=== PATIENT | male | born 1960 | race Caucasian/White ===

== ENCOUNTER → 2022-10-17 12:10 | Outpatient (CLI) | payer MEDICARE, MEDICAID, SELFPAY ==
[2022-10-17 13:09] LABS: Basophils % 0.6 % (0.1-2.0); Eosinophils # 0.2 K/mm3 (0.0-0.4); Eosinophils % 3.7 % (0.1-12.0); Hematocrit 44.9 % (42.0-52.0); Hemoglobin 14.9 g/dL (14.1-18.0); Lymphocytes # 2.7 K/mm3 (0.7-4.5); Lymphocytes % 45.2 % (10-50); Mean Corpuscular HGB Conc 33.1 g/dL (31.8-35.4); Mean Corpuscular Hemoglobin 31.4 pg (27.0-31.2); Mean Corpuscular Volume 94.9 fl (80-94); Mean Platelet Volume 7.5 fl (7.4-10.4); Monocytes # 0.4 K/mm3 (0.1-1.0); Monocytes % 5.9 % (1.7-9.3); Neutrophils # 2.6 K/mm3 (1.8-7.8); Neutrophils % 44.5 % (37.0-80.0); Platelet Count 287 K/mm3 (142-424); Red Blood Count 4.73 M/mm3 (4.60-6.20); Red Cell Distribution Width 13.9 % (11.5-17.5); White Blood Count 5.9 K/mm3 (4.8-10.8)
[2022-10-17 13:26] LABS: Alanine Aminotransferase 39 U/L (12-78); Albumin Level 4.1 g/dl (3.5-5.0); Albumin/Globulin Ratio 1.4 (1.1-1.8); Alkaline Phosphatase 75 U/L (38-126); Anion Gap 17.3 mEq/L (5-15); Aspartate Amino Transferase 42 U/L (17-59); Bilirubin,Total 0.5 mg/dl (0.2-1.3); Blood Urea Nitrogen 10 mg/dl (9-20); Calcium 8.6 mg/dl (8.4-10.2); Carbon Dioxide 24 mmol/L (22.0-30.0); Chloride 103 mmol/L (98-107); Chol/HDL Ratio 3.6 (1-3.5); Cholesterol 259 mg/dl (140-200); Estimated Glomerular Filt Rate 115 ml/min (>60); GFR (African American) 140 ML/MIN (>60); Globulin 2.9 g/dL (1.3-3.2); Glucose 107 mg/dl (74-100); HDL Cholesterol 72 mg/dl (40-60); Potassium 4.3 mmoL/L (3.5-5.1); Sodium 140 mmol/L (136-145)
[2022-10-17 13:29] LABS: Triglycerides 428 mg/dl (30-150)
[2022-10-17 13:37] LABS: Direct LDL Cholesterol 112.02 mg/dL (100-129)
[2022-10-17 13:41] LABS: 25-OH Vitamin D, Total 15.4 ng/mL (30-100)
[2022-10-17 13:56] LABS: Thyroid Stimulating Hormone 2.48 uIU/mL (0.465-4.68)
[2022-10-17 15:44] LABS: Hemoglobin A1C 5.3 % (4.0-6.0)
== END ==
PROVIDERS: PCP Nurse Practitioner Family; Visit Provider Nurse Practitioner Family
DX: R53.83 Other fatigue (principal); F41.9 Anxiety disorder, unspecified; E55.9 Vitamin D deficiency, unspecified; Z79.899 Other long term (current) drug therapy
CPT/HCPCS: 80053; 80061; 82306; 83036; 84443; 85025

== ENCOUNTER → 2022-10-24 14:09 | Outpatient (CLI) | payer MEDICARE, MEDICAID, SELFPAY | PROVIDERS: PCP Nurse Practitioner Family; Visit Provider Nurse Practitioner Family | DX: F17.200 Nicotine dependence, unspecified, uncomplicated (principal) | CPT/HCPCS: 94060; 94726; 94729 ==

== ENCOUNTER → 2023-02-13 23:33 | Outpatient (CLI) | payer MEDICARE, MEDICAID, SELFPAY ==
[2023-02-13 19:54] LABS: Barbiturates Screen,Urine Negative ng/ml (<200)
[2023-02-13 19:55] LABS: Amphetamine/Metha Screen,Urine Negative ng/ml (<1000)
[2023-02-13 19:57] LABS: Cocaine Screen,Urine Negative ng/ml (<300)
[2023-02-13 19:58] LABS: Benzodiazepines Screen,Urine Positive ng/ml (<200)
[2023-02-13 19:59] LABS: Cannabinoid Screen,Urine Negative ng/ml (<50); Phencyclidine Screen,Urine Negative ng/ml (<25)
[2023-02-13 20:00] LABS: Methadone Screen,Urine Negative ng/ml (<300)
[2023-02-13 20:01] LABS: Opiate Screen,Urine Negative ng/ml (<300)
== END ==
PROVIDERS: PCP Nurse Practitioner Family; Visit Provider Nurse Practitioner Family
DX: Z79.899 Other long term (current) drug therapy (principal)
CPT/HCPCS: 80305

== ENCOUNTER → 2023-05-14 23:07 | Outpatient (CLI) | payer MEDICARE, MEDICAID, SELFPAY ==
[2023-05-14 20:00] LABS: Amphetamine/Metha Screen,Urine Negative ng/ml (<1000)
[2023-05-14 20:01] LABS: Barbiturates Screen,Urine Negative ng/ml (<200)
[2023-05-14 20:02] LABS: Benzodiazepines Screen,Urine Positive ng/ml (<200)
[2023-05-14 20:03] LABS: Cannabinoid Screen,Urine Negative ng/ml (<50); Cocaine Screen,Urine Negative ng/ml (<300)
[2023-05-14 20:04] LABS: Methadone Screen,Urine Negative ng/ml (<300); Opiate Screen,Urine Negative ng/ml (<300)
[2023-05-14 20:05] LABS: Phencyclidine Screen,Urine Negative ng/ml (<25)
== END ==
PROVIDERS: PCP Nurse Practitioner Family; Visit Provider Nurse Practitioner Family
DX: Z79.899 Other long term (current) drug therapy (principal)
CPT/HCPCS: 80305

== ENCOUNTER 2023-07-02 21:08 | Outpatient (CLI) | payer MEDICARE, MEDICAID, SELFPAY ==
[2023-07-02 18:52] LABS: Benzodiazepines Screen,Urine Positive ng/ml (<200)
[2023-07-02 18:53] LABS: Barbiturates Screen,Urine Negative ng/ml (<200)
[2023-07-02 18:55] LABS: Cocaine Screen,Urine Negative ng/ml (<300)
[2023-07-02 18:56] LABS: Opiate Screen,Urine Negative ng/ml (<300); Phencyclidine Screen,Urine Negative ng/ml (<25)
[2023-07-02 19:00] LABS: Methadone Screen,Urine Negative ng/ml (<300)
[2023-07-02 19:02] LABS: Cannabinoid Screen,Urine Positive ng/ml (<50)
[2023-07-02 19:24] LABS: Amphetamine/Metha Screen,Urine Negative ng/ml (<1000)
== END 2023-07-02 23:59 ==
LOC: LAB.DROPOF 21:09
PROVIDERS: PCP Nurse Practitioner Acute Care; Visit Provider Nurse Practitioner Acute Care
DX: Z79.899 Other long term (current) drug therapy (principal)
CPT/HCPCS: 80307

== ENCOUNTER 2023-10-01 13:51 | Outpatient (CLI) | payer MEDICARE, MEDICAID, SELFPAY ==
[2023-10-01 14:19] LABS: Basophils # 0.1 K/mm3 (0-0.2); Basophils % 1.2 % (0.1-2.0); Eosinophils # 0.5 K/mm3 (0.0-0.4); Eosinophils % 7.6 % (0.1-12.0); Hemoglobin 15.5 g/dL (14.1-18.0); Lymphocytes # 2.4 K/mm3 (0.7-4.5); Lymphocytes % 33.3 % (10-50); Mean Platelet Volume 8.1 fl (7.4-10.4); Monocytes # 0.3 K/mm3 (0.1-1.0); Monocytes % 4.6 % (1.7-9.3); Neutrophils # 3.8 K/mm3 (1.8-7.8); Neutrophils % 53.2 % (37.0-80.0); Platelet Count 200 K/mm3 (142-424); Red Blood Count 4.84 M/mm3 (4.60-6.20); White Blood Count 7.2 K/mm3 (4.8-10.8)
[2023-10-01 15:03] LABS: Alanine Aminotransferase 132 U/L (12-78); Albumin Level 4.4 g/dl (3.5-5.0); Albumin/Globulin Ratio 1.4 (1.1-1.8); Alkaline Phosphatase 80 U/L (38-126); Anion Gap 13.3 mEq/L (5-15); Aspartate Amino Transferase 100 U/L (17-59); Bilirubin,Total 0.8 mg/dl (0.2-1.3); Blood Urea Nitrogen 5 mg/dl (9-20); Calcium 9.6 mg/dl (8.4-10.2); Carbon Dioxide 30 mmol/L (22.0-30.0); Chloride 95 mmol/L (98-107); Chol/HDL Ratio 4.7 (1-3.5); Cholesterol 321 mg/dl (140-200); Estimated Glomerular Filt Rate 115 ml/min (>60); GFR (African American) 139 ML/MIN (>60); Globulin 3.2 g/dL (1.3-3.2); Glucose 140 mg/dl (74-100); HDL Cholesterol 69 mg/dl (40-60); Potassium 4.3 mmoL/L (3.5-5.1); Sodium 134 mmol/L (136-145); Total Protein,Serum 7.6 g/dl (6.3-8.2)
[2023-10-01 15:13] LABS: Triglycerides 458 mg/dl (30-150)
[2023-10-01 15:14] LABS: Direct LDL Cholesterol 165.12 mg/dL (100-129); Hemoglobin A1C 6.7 % (4.0-6.0)
[2023-10-01 15:18] LABS: Free T4 (Free Thyroxine) 0.67 ng/dl (0.78-2.19)
[2023-10-01 15:34] LABS: Thyroid Stimulating Hormone 4.36 uIU/mL (0.465-4.68)
[2023-10-01 18:56] LABS: Amphetamine/Metha Screen,Urine Negative ng/ml (<1000)
[2023-10-01 18:57] LABS: Barbiturates Screen,Urine Negative ng/ml (<200); Benzodiazepines Screen,Urine Positive ng/ml (<200)
[2023-10-01 18:58] LABS: Cannabinoid Screen,Urine Negative ng/ml (<50)
[2023-10-01 18:59] LABS: Cocaine Screen,Urine Negative ng/ml (<300); Methadone Screen,Urine Negative ng/ml (<300)
[2023-10-01 19:00] LABS: Opiate Screen,Urine Negative ng/ml (<300); Phencyclidine Screen,Urine Negative ng/ml (<25)
[2023-10-03 15:33] LABS: Lithium (Eskalith(R)) <0.1 mmol/L (0.5-1.2)
== END 2023-10-01 23:59 | disposition home or self-care (01) ==
LOC: LAB 13:52
PROVIDERS: PCP Nurse Practitioner Family; Visit Provider Nurse Practitioner Acute Care
DX: F31.62 Bipolar disorder, current episode mixed, moderate (principal); F41.1 Generalized anxiety disorder; Z79.899 Other long term (current) drug therapy
CPT/HCPCS: 36415; 80053; 80061; 80178; 80307; 83036; 84439; 84443; 85025

== ENCOUNTER 2023-10-22 09:45 | Outpatient (CLI) | payer MEDICARE, MEDICAID, SELFPAY ==
[2023-10-22 19:31] LABS: Free T4 (Free Thyroxine) 0.92 ng/dl (0.78-2.19)
[2023-10-22 19:39] LABS: Alanine Aminotransferase 69 U/L (12-78); Albumin Level 4.3 g/dl (3.5-5.0); Albumin/Globulin Ratio 1.4 (1.1-1.8); Alkaline Phosphatase 73 U/L (38-126); Anion Gap 15.1 mEq/L (5-15); Aspartate Amino Transferase 62 U/L (17-59); Bilirubin,Total 0.8 mg/dl (0.2-1.3); Blood Urea Nitrogen 7 mg/dl (9-20); Calcium 9.5 mg/dl (8.4-10.2); Carbon Dioxide 23 mmol/L (22.0-30.0); Chloride 100 mmol/L (98-107); Estimated Glomerular Filt Rate 115 ml/min (>60); GFR (African American) 139 ML/MIN (>60); Glucose 124 mg/dl (74-100); Potassium 4.1 mmoL/L (3.5-5.1); Sodium 134 mmol/L (136-145); Total Protein,Serum 7.3 g/dl (6.3-8.2)
[2023-10-22 20:09] LABS: Thyroid Stimulating Hormone 1.94 uIU/mL (0.465-4.68)
[2023-10-24 12:04] LABS: Lithium (Eskalith(R)) 0.5 mmol/L (0.5-1.2)
== END 2023-10-22 23:59 | disposition home or self-care (01) ==
LOC: LAB.DROPOF 10-24 09:46
PROVIDERS: PCP Nurse Practitioner Acute Care; Visit Provider Nurse Practitioner Acute Care
DX: F31.62 Bipolar disorder, current episode mixed, moderate (principal); F41.1 Generalized anxiety disorder
CPT/HCPCS: 80053; 80178; 84439; 84443

== ENCOUNTER 2023-11-25 14:20 | Outpatient (CLI) | payer MEDICARE, MEDICAID, SELFPAY ==
[2023-11-26 15:03] LABS: Anion Gap 11.6 mEq/L (5-15); Blood Urea Nitrogen 10 mg/dl (9-20); Calcium 9.3 mg/dl (8.4-10.2); Carbon Dioxide 28 mmol/L (22.0-30.0); Chloride 100 mmol/L (98-107); Estimated Glomerular Filt Rate 99 ml/min (>60); GFR (African American) 119 ML/MIN (>60); Glucose 119 mg/dl (74-100); Potassium 4.6 mmoL/L (3.5-5.1); Sodium 135 mmol/L (136-145)
[2023-11-27 13:12] LABS: Lithium (Eskalith(R)) 0.7 mmol/L (0.5-1.2)
== END 2023-11-25 23:59 | disposition home or self-care (01) ==
LOC: LAB.DROPOF 11-26 10:47
PROVIDERS: PCP Nurse Practitioner Family; Visit Provider Nurse Practitioner Family
DX: F41.9 Anxiety disorder, unspecified (principal); E11.9 Type 2 diabetes mellitus without complications; M54.50 Low back pain, unspecified; Z79.899 Other long term (current) drug therapy
CPT/HCPCS: 80048; 80178

== ENCOUNTER 2023-11-26 11:08 | Outpatient (CLI) | payer MEDICARE, MEDICAID, SELFPAY | END 2023-11-26 23:59 | disposition home or self-care (01) | LOC: LAB.DROPOF 12-01 11:09 | PROVIDERS: PCP Nurse Practitioner Family; Visit Provider Nurse Practitioner Family | DX: E11.9 Type 2 diabetes mellitus without complications (principal) | CPT/HCPCS: 80048 ==

== ENCOUNTER 2024-01-14 11:15 | Outpatient (CLI) | payer MEDICARE, MEDICAID, SELFPAY ==
[2024-01-14 19:52] LABS: Anion Gap 9.2 mEq/L (5-15); Blood Urea Nitrogen 8 mg/dl (9-20); Calcium 9.3 mg/dl (8.4-10.2); Carbon Dioxide 24 mmol/L (22.0-30.0); Chloride 108 mmol/L (98-107); Estimated Glomerular Filt Rate 115 ml/min (>60); GFR (African American) 139 ML/MIN (>60); Glucose 104 mg/dl (74-100); Potassium 4.2 mmoL/L (3.5-5.1); Sodium 137 mmol/L (136-145)
[2024-01-16 13:18] LABS: Lithium (Eskalith(R)) 0.7 mmol/L (0.5-1.2)
== END 2024-01-14 23:59 | disposition home or self-care (01) ==
LOC: LAB.DROPOF 01-15 11:15
PROVIDERS: PCP Nurse Practitioner Acute Care; Visit Provider Nurse Practitioner Acute Care
DX: Z79.899 Other long term (current) drug therapy (principal)
CPT/HCPCS: 80048; 80178

== ENCOUNTER 2024-04-14 14:30 | Outpatient (CLI) | payer MEDICARE, MEDICAID, SELFPAY ==
[2024-04-14 20:13] LABS: Alanine Aminotransferase 66 U/L (12-78); Albumin Level 4.2 g/dl (3.5-5.0); Albumin/Globulin Ratio 1.4 (1.1-1.8); Alkaline Phosphatase 65 U/L (38-126); Anion Gap 14.4 mEq/L (5-15); Aspartate Amino Transferase 64 U/L (17-59); Bilirubin,Total 0.6 mg/dl (0.2-1.3); Blood Urea Nitrogen 22 mg/dl (9-20); Calcium 9.7 mg/dl (8.4-10.2); Carbon Dioxide 25 mmol/L (22.0-30.0); Chloride 99 mmol/L (98-107); Estimated Glomerular Filt Rate 98 ml/min (>60); GFR (African American) 119 ML/MIN (>60); Globulin 2.9 g/dL (1.3-3.2); Glucose 131 mg/dl (74-100); Potassium 4.4 mmoL/L (3.5-5.1); Sodium 134 mmol/L (136-145); Total Protein,Serum 7.1 g/dl (6.3-8.2)
[2024-04-14 20:28] LABS: Free T4 (Free Thyroxine) 0.88 ng/dl (0.78-2.19)
[2024-04-14 20:44] LABS: Thyroid Stimulating Hormone 8.06 uIU/mL (0.465-4.68)
[2024-04-16 15:05] LABS: Lithium (Eskalith(R)) 1.1 mmol/L (0.5-1.2)
== END 2024-04-14 23:59 | disposition home or self-care (01) ==
LOC: LAB.DROPOF 04-16 09:04
PROVIDERS: PCP Nurse Practitioner Acute Care; Visit Provider Nurse Practitioner Acute Care
DX: F41.9 Anxiety disorder, unspecified (principal); F31.62 Bipolar disorder, current episode mixed, moderate
CPT/HCPCS: 80053; 80178; 84439; 84443

== ENCOUNTER 2024-07-19 13:15 | Outpatient (CLI) | payer MEDICARE, MEDICAID, SELFPAY ==
[2024-07-19 17:28] LABS: Basophils # 0.1 K/mm3 (0-0.2); Basophils % 0.7 % (0.1-2.0); Eosinophils # 0.3 K/mm3 (0.0-0.4); Eosinophils % 4.3 % (0.1-12.0); Hematocrit 44.7 % (42.0-52.0); Lymphocytes # 1.4 K/mm3 (0.7-4.5); Lymphocytes % 19.6 % (10-50); Mean Corpuscular HGB Conc 33.6 g/dL (31.8-35.4); Mean Corpuscular Hemoglobin 30.7 pg (27.0-31.2); Mean Corpuscular Volume 91.4 fl (80-94); Mean Platelet Volume 9.9 fl (7.4-10.4); Monocytes # 0.4 K/mm3 (0.1-1.0); Monocytes % 5.6 % (1.7-9.3); Neutrophils # 4.8 K/mm3 (1.8-7.8); Neutrophils % 69.5 % (37.0-80.0); Platelet Count 252 K/mm3 (142-424); Red Blood Count 4.89 M/mm3 (4.60-6.20); Red Cell Distribution Width 12.9 % (11.5-17.5); White Blood Count 6.9 K/mm3 (4.8-10.8)
[2024-07-19 18:35] LABS: Chol/HDL Ratio 3.1 (1-3.5); Cholesterol 220 mg/dl (140-200); HDL Cholesterol 71 mg/dl (40-60); Triglycerides 157 mg/dl (30-150); VLDL Cholesterol 31 mg/dL (0-40)
[2024-07-19 18:48] LABS: Direct LDL Cholesterol 117.62 mg/dL (100-129)
[2024-07-21 08:15] LABS: Lithium (Eskalith(R)) 0.7 mmol/L (0.5-1.2)
== END 2024-07-19 23:59 | disposition home or self-care (01) ==
LOC: LAB.DROPOF 07-21 12:43
PROVIDERS: Nurse Practitioner Family; PCP Nurse Practitioner Acute Care; Visit Provider Nurse Practitioner Acute Care
DX: E78.5 Hyperlipidemia, unspecified (principal); E11.9 Type 2 diabetes mellitus without complications; F31.62 Bipolar disorder, current episode mixed, moderate; F41.9 Anxiety disorder, unspecified; M54.50 Low back pain, unspecified; F17.200 Nicotine dependence, unspecified, uncomplicated
CPT/HCPCS: 80061; 80178; 83036; 85025

== ENCOUNTER 2024-09-09 09:00 | Outpatient (CLI) | payer MEDICARE, MEDICAID, SELFPAY ==
--- NOTE | 2024-09-09 09:15 | XR_ITS ---
FINAL REPORT CLINICAL HISTORY: .pain FINDINGS: AP, oblique, and lateral views of the left wrist were obtained. There is no prior exam for comparison. There is no acute fracture or dislocation. Mild degenerative joint disease. The soft tissues are normal. IMPRESSION: Mild degenerative change without acute osseous abnormality of the left wrist. If pain persists, MR is recommended. Reviewed, Interpreted and Dictated by Angelina Carlisle MD Transcribed by Ashly Funez Authenticated and [facility]
--- NOTE | 2024-09-09 09:15 | XR_ITS ---
FINAL REPORT CLINICAL HISTORY: .pain FINDINGS: AP, oblique, and lateral views of the right wrist were obtained. There is no prior exam for comparison. There is no acute fracture or dislocation. The joint spaces are preserved. The soft tissues are normal. IMPRESSION: No acute osseous abnormality of the right wrist. If pain persists, MR is recommended. Reviewed, Interpreted and Dictated by Angelina Carlisle MD Transcribed by Ashly Funez Authenticated and [facility]
== END 2024-09-09 23:59 | disposition home or self-care (01) ==
LOC: RAD 09:02
PROVIDERS: PCP Nurse Practitioner Family; Visit Provider Physician Assistant
DX: M25.531 Pain in right wrist (principal); M25.532 Pain in left wrist
CPT/HCPCS: 73110

== ENCOUNTER 2024-09-23 14:24 | Outpatient (CLI) | payer MEDICARE, MEDICAID, SELFPAY ==
--- OUTSIDE RECORDS SUMMARY | 2024-09-23 14:25 | XMS_ITS | Data Portability ---
Author Organization [facility] ADMIN Address [address] [place] [id number] Assessment No assessment recorded. Plan of Treatment Reminders Order Date Submit Date Provider Last Modified By Organization Details Last Modified Time Details Appointments None recorded. Lab None recorded. Referral psychiatris t referral 2021 022 [address] 3 Popeye Ayala MD, [address] [facility], [place], [address], 16:39:16 Procedures None recorded. Surgeries None recorded. Imaging None recorded. Medication Orders nicotine 14 mg/24 hr daily transdermal patch 2021 022 [facility], [facility] [place], [place], [id number], 12:21:27 Patient TargetsNo targets recorded. Patient Instructions Encounter Date Encounter Id Patient Instructions Last Modified By Organization Details Last Modified Time 02/06/2022 [id number] smoking cessation counseling, greater than 3 minutes up to 10 minutes* [email or web address] Not available 02/23/2022 14:01:09 Reason for Referral Psychiatrist Referral for Bi polar disorder Referring Physician: Bayron Bird, Internal Medicine, Encounter Date: 02/06/2022 Medical Equipment None Reported. Allergies Allergen ID Allergen Name Allergen Category Reaction Reaction Severity Criticality Documentation Date Start Date Code Code System Note Provider Name and Address Organization Details Recorded Time 79686 azithromy dick medicatio n Not available Not available Not available 02/06/2022 57787 RxNorm Brody [facility] & [place] 11:55:30 Medications Name Sig Start Date Stop Date Status Note LastModified by Organization Details LastModified Time fluoxetine 40 mg capsule Take 2 capsules every morning active Not Available Not Available No t Available atorvastati n 40 mg tablet TAKE 1 Tablet BY MOUTH AT BEDTIME active Not Available Not Available No t Available lamotrigine 150 mg tablet Take 1 oral tablet 2 times a day 02/06 completed Not Available Not Available Not Available nicotine 14 mg/24 hr daily transdermal patch Apply 1 patch every day by transderm al route. 2021 active Not Available Not Available Not Avai lable trazodone 50 mg tablet Take 1/2-1 tablet at bedtime as needed for sleep. active Not Available Not Available No t Available aspirin 81 mg tablet,haritha yed release TAKE 1 Tablet BY MOUTH ONCE DAILY active Not Available Not Available No t Available lithium carbonate ER 450 mg tablet,exte nded release Take 2 tablets at bedtime active Not Available Not Available No t Available ziprasidone 40 mg capsule Take 2 capsules every evening with food active Not Available Not Available No t Available diazepam 10 mg tablet Take 1 tablet twice a day by oral route. active Not Available Not Available No t Available albuterol sulfate HFA 90 mcg/actuati on aerosol inhaler INHALE TWO PUFFS FOUR TIMES DAILY NEEDED active Not Available Not Available No t Available diazepam 5 mg tablet Take 1 tablet daily as needed for severe anxiety x 2 weeks, then decrease to 1/2-1 tablet daily as needed x 2 weeks then discontin ue. 02/06 completed Not Available Not Available Not Available Vitals Date Recorded Body weight Body mass index (BMI) Body height Body temperature Oxygen saturation Oxygen saturation in Arterial blood by Pulse oximetry Heart rate Systolic blood pressure Diastolic blood pressure Provider Name and Address Organization Details Last Updated DateTime 2 020188. 68 g 34 kg/m2 175.26 cm 98.2 [degF] 98 % 98 % 80 /min 118 mm[Hg] 78 mm[Hg] Brody GARCIA [facility] & [place] 11:59:22 Social History Question Answer Notes LastModified by Organizat ion Details LastModified Time Tobacco Smoking Status Current Every Day [facility] & [place] 02/06/2022 11:56:19 What Is Your Level Of Alcohol Consumption? Occasional Information not available 02/06/2022 How Much Tobacco Do You Smoke? 0.5 PPD Information not available 02/06/2022 Do You Use Any Illicit Or Recreational Drugs? No Information not available 02/06/2022 Sex: Unknown Functional Status None recorded. Mental Status None recorded. Family History Nothing Reported. Medical History Condition Response Anxiety Disorder Y Depression Y Asthma Y Past Encounters Encounter ID Performer Location Encounter Start Date Encounter Closed Date Diagnosis/Indication Diagnosis SNOMED-CT Code Diagnosis ICD10 Code Diagnosis Note [id number] Bayron Bird MD [facility] [address] [facility] [address] [place] [address] 02/06/2022 11:25:28 02/06/2022 12:19:38 Benzodiazepine dependence 827250819 F13.20 Anxiety 09446216 F41.9 Bipolar disorder 9142164 4 F31.9 Smoker 44531831 F17.203 Hyperlipidemia 65770240 E78.5 nuc med stress test bourbon -Continue atorvastat in Diet education 46164565 Z71.3 spent approximat love 15 minutes dietary Education with patient. He is to stop high fructose corn syrup containing carbonated beverages altogether . Focus on high-prote in low-carboh ydrate diet intermitte nt fasting skip breakfast Exercises education, guidance, and counseling 580379190 Z71.82 discussed with patient approximat love 10 VATS. Found 10 minutes discussing exercise. Recommend joining a gem were getting a piece of exercise equipment in the house. 2024 minutes 3-4 days per week of interval training gentle heart rate to 70% cardiovasc ular max approximat love 110 beats per minute interval fashion Health Concerns Section Related Observation LastModified by Organization Detai ls LastModified Time None Recorded Concern Status LastModified by Organization Details LastModified Time None Recorded Advance Directives Directive None Recorded Payers Insurance Date Sequence Insurance Name Policy Number Policy [place] Covered Member ID [place] Member ID Guarantor Name 12/06/2023 1 [id number] Donny S Figueroa [id number] Donny S Figueroa 12/06/2023 2 [id number] Donny Figueroa [id number] Donny Figueroa 02/05/2023 2 MEDICAID-[facility] CHO[facility] - FFS/TRADITIO NAL Donny Figueroa [id number] Donny Figueroa Notes Date Note Type Note Provider Name and Address Organization Details Recorded Time 02/06/2022 text/html 61-year-old chet salomon here to establish care. Met this gentleman in the emergency department at [facility]. At that time he was being seen for panic attack due to benzodiazepine withdrawal. He precipitously been withdrawn off of Valium which he had been on since 1994 and was having an acute panic reaction to withdrawal. Patient states he started back on Valium 10 mg 1 p.o. b.i.d. and is affectively cured his withdrawal. He has no more panic. He also is taking lithium carbonate, fluoxetine, Geodon and trazodone at night to sleep. This is a good cocktail for MN and works quite well. Otherwise he has a history of dyslipidemia. No problems with hypertension. Blood pressures been well controlled on no medication. He had a negative stress test in the emergency department at [facility] this year. His nuclear medicine stress test which was normal. No other cerebrovascular disease. He does smoke approximately half pack a day. He has been trying to quit. He also has dietary did issues. He drinks 12 cokes a day and is a stress eater. Bayron Bird MD [address], [place], [address], [facility] [place] & [place] 02/06/2022 12:37:34
--- NOTE | 2024-09-23 14:45 | MR_ITS ---
FINAL REPORT TECHNIQUE: Multiplanar and multisequence imaging of the cervical spine was obtained. CLINICAL HISTORY: neck pain, numbness in 4th and 5th digits of right hand after lifting a heavy object 1 yr ago FINDINGS: There is very mild anterolisthesis of C3 on C4 which is likely degenerative. Alignment is otherwise normal. Vertebral body height is preserved. Signal intensity within the substance of the spinal cord is normal. There is a hemangioma in the C4 vertebral body. No acute paraspinal abnormality. C2/3: Prominent right facet osteoarthropathy. No canal stenosis. Mild to moderate right foraminal narrowing. C3/4: Annular disc bulge with degenerative endplate change and facet osteoarthropathy. No canal stenosis. Mild right and severe left foraminal narrowing. C4/5: Annular disc bulge with degenerative endplate change and facet osteoarthropathy. Mild canal stenosis. Moderate bilateral foraminal narrowing. C5/6: Annular disc bulge with degenerative endplate change and facet osteoarthropathy, asymmetric to the right. Mild canal stenosis. Severe bilateral foraminal narrowing. C6/7: Annular disc bulge with degenerative endplate change and facet osteoarthropathy. No canal stenosis. Moderate to severe right, greater than left, foraminal narrowing. C7/T1: There is no focal disc herniation, central stenosis or neural foraminal narrowing. IMPRESSION: Multilevel degenerative disease as detailed. Reviewed, Interpreted and Dictated by Angelina Carlisle MD Transcribed by BARB Monk Authenticated and [facility]
== END 2024-09-23 23:59 | disposition home or self-care (01) ==
LOC: RAD 14:24
PROVIDERS: PCP Nurse Practitioner Family; Visit Provider Physician Assistant
DX: G56.21 Lesion of ulnar nerve, right upper limb (principal)
CPT/HCPCS: 72141

== ENCOUNTER 2024-10-04 12:34 | Day surgery (SDC) | payer MEDICARE, MEDICAID, SELFPAY ==
[2024-10-04 13:34] VITALS: BP 154/80; PULSE 76; RESP 16; TEMP 36.7; O2SAT 97; BMI 36.6
[2024-10-04] MEDS: LACTATED RINGERS 1000ML 1,000 ML 50 ML IV (13:43)
--- NOTE | 2024-10-04 13:49 | P.PNANES_ITS ---
[facility] Disclaimer: The information contained in this section may have been updated after the patient was seen, as this information can be updated by other users. Medical History Anxiety Tobacco dependence syndrome Bipolar 1 disorder, mixed, moderate Generalized anxiety disorder Diabetes mellitus Surgical History No pertinent past surgical history Family History Family/Other No significant family history Social History Smoking Status: Current some day smoker tobacco type: cigarettes and e- cigarettes alcohol intake: current alcohol intake frequency: holidays/special occasions only substance use type: denies use current occupational status: retired and disabled Travel in the last 8 weeks?: None housing: apartment lives independently: Yes marital status: single Have you lived/traveled outside US in past 30 days?: No Contact w/someone who lives/traveled outside US past 30 days?: No Exposure to someone with infectious disease in past 14 days?: No Do you have a fever (greater than 100.4 F or 38 C)?: No Have you tested positive for COVID-19?: No Exposed to someone with COVID-19 in past 14 days?: No Do you have a sore throat?: No Do you have a cough?: No Do you have any weakness?: No Do you have any diarrhea?: No Are you experiencing any unusual bleeding?: No Do you have any muscle aches/pain?: No Do you have any abdominal pain?: No Are you experiencing loss of taste or smell?: No [facility] Anesthesia Checklist Patient Identification Patient Identification: Arm Band and Verbal (Name & ) Structural Data Admitted From: Home Planned Operative Procedure/s: colonoscopy Consent for Planned Operative Procedure(s) Verified: Yes Verified Documents: Surgical Consent NPO Status Verified Time NPO: 00:00 Chart Verification Results Verified: None Additional verifications Fingerstick Blood Glucose: 142 Patient : No Anesthesia Reactions: No Airway Assessment Mallampati Score:: Class II C-Spine Mobility Assessed: Yes TMJ Mobility Assessed: Yes Dentition: Edentulous Neurological Assessment Level of Consciousness: Awake, Alert and Appropriate Hx Seizures: No Numbness or tingling in extremities: Yes (Numbness down right arm) Anesthesia Plan Anesthesia Plan: Verified ASA Class: II Anesthesia Type: MAC
--- NOTE | 2024-10-04 14:48 | P.HP_ITS ---
History of Present Illness *Admission Date: 10/04/24 *Reason for visit:: Screening for colon cancer *History of present illness: Mr. Figueroa is a 63-year-old gentleman who is here for screening colonoscopy and last colonoscopy was more than 10 years ago. The examination is deemed medicall y necessary for screening colonoscopy. The patient has been seen, interviewed and examined prior to the procedure by both myself and the anesthesia provider. [facility] Disclaimer: The information contained in this section may have been updated after the patient was seen, as this information can be updated by other users. Medical History Anxiety Tobacco dependence syndrome Bipolar 1 disorder, mixed, moderate Generalized anxiety disorder Diabetes mellitus Surgical History No pertinent past surgical history Family History Family/Other No significant family history Social History Smoking Status: Current some day smoker tobacco type: cigarettes and e-cigarett es alcohol intake: current alcohol intake frequency: holidays/special occasions only substance use type: denies use current occupational status: retired and disabled Travel in the last 8 weeks?: None housing: apartment lives independently: Yes marital status: single Have you lived/traveled outside US in past 30 days?: No Contact w/someone who lives/traveled outside US past 30 days?: No Exposure to someone with infectious disease in past 14 days?: No Do you have a fever (greater than 100.4 F or 38 C)?: No Have you tested positive for COVID-19?: No Exposed to someone with COVID-19 in past 14 days?: No Do you have a sore throat?: No Do you have a cough?: No Do you have any weakness?: No Do you have any diarrhea?: No Are you experiencing any unusual bleeding?: No Do you have any muscle aches/pain?: No Do you have any abdominal pain?: No Are you experiencing loss of taste or smell?: No Other Medical History Have you received the Pneumonia Vaccine: Yes Review of Systems Review of Systems Review of systems (narrative): Negative *Cardiovascular Comments: Negative *Gastrointestinal Comments: Negative *Genitourinary Comments: Negative *Musculoskeletal Comments: Negative *Neurologic Comments: Negative Meds Home Medications and Allergies Home Medications ?Medication ?Instructions ?Recorded ?Confirmed ?Type fluoxetine 20 mg capsule 20 mg PO DAILY #90 caps 04/14/24 10/04/24 Rx lithium carbonate 450 mg 900 mg (2 x 450 mg) PO DAILY #60 04/14/24 10/04/24 Rx tablet,extended release tabs ziprasidone HCl 80 mg capsule 80 mg PO HS #30 caps 04/14/24 10/04/24 Rx (Geodon) albuterol sulfate 90 mcg/actuation See Rx Instructions .Route 07/14/24 10/04/24 Rx aerosol inhaler (Ventolin HFA) .COMPLEX #18 grams metformin 1,000 mg tablet,extended 1,000 mg PO DAILY #30 tabs 07/27/24 10/04/24 Rx release 24hr (osmotic) diazepam 5 mg tablet (Valium) 5 mg PO BID PRN anxiety #60 tabs 09/14/24 10/04/24 Rx rosuvastatin 20 mg tablet See Rx Instructions .Route 09/14/24 10/04/24 Rx .COMPLEX #90 tabs New Prescriptions to Start Prescriptions: Allergies Allergy/AdvReac Type Severity Reaction Status Date / Time erythromycin base Allergy Unknown Other Verified 10/04/24 13:33 (ERYTHROMYCIN BASE) Exam Data for Last 24 hours Vital signs and Labs for Last 24 Hours: Temp Pulse Resp BP Pulse Ox O2 Del Method 98.0 F 76 16 154/80 H 97 Room Air 10/04/24 13:34 10/04/24 13:34 10/04/24 13:34 10/04/24 13:34 10/04/24 13:34 10/04/24 13:34 I & O for Last 24 hours: Intake & Output 10/01/24 10/02/24 10/03/24 10/04/24 23:59 23:59 23:59 23:59 Weight 248 lb *Routine HEENT Exam Head: Present normocephalic Eye: Present EOMI and PERRL ENT: Present mucous membranes moist *Routine Neck Exam Neck: Present supple *Routine Respiratory Exam Respiratory: Present CTA bilaterally *Routine Cardiovascular Exam Cardiovascular: Present RRR *Routine Abdominal Exam Abdominal: Present soft and normoactive bowel sounds; Absent tenderness *Routine Rectal Exam Rectal:: deferred *Routine Genitalia Exam Genitalia:: deferred *Routine Extremities Exam Extremities: Absent cyanosis, clubbing or edema *Routine Skin Exam Skin: Present warm; Absent rash *Routine Neurological Exam Neurological: Present alert and oriented X3 Assessment and Plan *Assessment and plan (1) Screening for colon cancer: Status: Acute Category: Medical Code(s): Z12.11 - Encounter for screening for malignant neoplasm of colon Plan A/P: 1. Screening for colon cancer is the preprocedural diagnosis. The patient will be anesthetized/sedated using MAC sedation. The patient has been seen and examined. Cardiac and lung assessment prior to the examination is stable. Proceed with planned screening colonoscopy.
[2024-10-04 14:52] VITALS: O2SAT 97
--- NOTE | 2024-10-04 15:06 | HMH.PROCNOTE ---
[facility] Procedure Note Date: 10/04/24 Time: 15:28 Procedure Note:: Colonoscopy Procedure Report: Colonoscopy with cold snare polypectomy Endoscopist: Erlin Guevara II, MD Referring physician: CHRIS Santiago Date of Procedure: October 04, 2024 Equipment: Olympus 190 variable stiffness pediatric colonoscope Sedation: MAC sedation Indication: Mr. Figueroa is a 63-year-old gentleman who is here for screening colonoscopy. His last colonoscopy was more than 10 years ago. He reports no abdominal pain, weight loss, change in his bowel habits or family history of colon cancer. He does have bright red rectal bleeding from internal hemorrhoids that occurs once weekly. This can sometimes fill the commode. He also has some hemorrhoidal prolapse. Procedure: Prior to the procedure, a history and physical exam was performed, and patient's medications and allergies were reviewed. The risks, benefits and alternatives of the sedation and procedure were discussed with the patient. All questions were answered and informed consent was obtained. The patient was brought to the procedure room. Patient identification and proposed procedure were verified by the physician and the nurse. The patient was placed in a left lateral decubitus position and the scope was passed under direct vision. Throughout the procedure, the patient's blood pressure, pulse, and oxygen saturations were monitored continuously. The colonoscopy was accomplished without difficulty. The patient tolerated the procedure well. Findings: On digital rectal examination there was normal rectal tone. There were no external hemorrhoids. The colonoscope was introduced through the anal canal to the rectum and advanced to the cecum. The ileocecal valve and appendiceal orifice were identified. The scope was advanced a short distance into the ileum which appeared grossly normal. The scope was then withdrawn into the colon. The preparation was fair to poor with a lot of liquid yellowish-brown stool and multiple washings were obtained. Diminutive polyps would be difficult to visualize. There were 3 polyps identified (transverse x 1 (8 mm), descending x 1 (5 mm) and sigmoid x 1 (6 mm)). These were all removed via cold snare polypectomy. Upon retroflexion within the rectum there were grade 2-3 internal hemorrhoids. The preparation was fair to poor throughout with Graham Preparation Score of 5-6 out of 9. The cecal time was 12 minutes. Impression: 1. Colonic polyps x 3 2. Fair to poor bowel preparation 3. Grade 2-3 internal hemorrhoids Plan: I will follow-up the polyp histology and recommend repeat surveillance colonoscopy again in 5 years if the polyps are adenomatous.
[2024-10-04 15:37] VITALS: BP 119/77; PULSE 69; RESP 18; TEMP 36.1; O2SAT 98
[2024-10-04 15:47] VITALS: BP 143/88; PULSE 73; RESP 18; O2SAT 97
[2024-10-04 15:57] VITALS: BP 147/90; PULSE 71; RESP 18; O2SAT 98
[2024-10-04 16:07] VITALS: BP 138/80; PULSE 68; RESP 20; TEMP 36.1; O2SAT 99
[2024-10-06 07:35] LABS: POC Glucose,Bedside 142 (70-110)
== END 2024-10-04 16:10 | disposition home or self-care (01) ==
PROVIDERS: PCP Nurse Practitioner Family; Visit Provider Internal Medicine Gastroenterology
PROC: 0DJD8ZZ Inspection of Lower Intestinal Tract, Via Natural or Artificial Opening Endoscopic (ICD-10-PCS; CPT 45378; principal; 2024-10-04 14:30)
DX: Z12.11 Encounter for screening for malignant neoplasm of colon (principal); K62.5 Hemorrhage of anus and rectum; D12.4 Benign neoplasm of descending colon; D12.5 Benign neoplasm of sigmoid colon; D12.3 Benign neoplasm of transverse colon; K64.9 Unspecified hemorrhoids; E11.9 Type 2 diabetes mellitus without complications
CPT/HCPCS: 45385; 82962; J7120

== ENCOUNTER 2025-01-26 16:21 | Outpatient (CLI) | payer MEDICARE, MEDICAID, SELFPAY ==
[2025-01-26 20:32] LABS: Hematocrit 41.3 % (42.0-52.0); Hemoglobin 13.5 g/dL (14.1-18.0); Immature Granulocytes % 0.5 %; Mean Corpuscular HGB Conc 32.7 g/dL (31.8-35.4); Mean Corpuscular Hemoglobin 32.7 pg (27.0-31.2); Mean Corpuscular Volume 100.0 fl (80-94); Nucleated Red Blood Cells % 0 %; Platelet Count 189 K/mm3 (142-424); Red Blood Count 4.13 M/mm3 (4.60-6.20); Red Cell Distribution Width-SD 49.1 fL; White Blood Count 5.8 K/mm3 (4.8-10.8)
[2025-01-26 20:58] LABS: Alanine Aminotransferase 43 U/L (12-78); Albumin Level 4.3 g/dl (3.5-5.0); Albumin/Globulin Ratio 1.5 (1.1-1.8); Alkaline Phosphatase 78 U/L (38-126); Anion Gap 13.0 mEq/L (5-15); Aspartate Amino Transferase 49 U/L (17-59); Bilirubin,Total 0.5 mg/dl (0.2-1.3); Blood Urea Nitrogen 15 mg/dl (9-20); Calcium 8.7 mg/dl (8.4-10.2); Carbon Dioxide 25 mmol/L (22.0-30.0); Chloride 102 mmol/L (98-107); Creatinine,Serum 0.90 mg/dl (0.66-1.25); Estimated Glomerular Filt Rate 86 ml/min (>60); GFR (African American) 103 ML/MIN (>60); Globulin 2.9 g/dL (1.3-3.2); Glucose 155 mg/dl (74-100); Potassium 4.0 mmoL/L (3.5-5.1); Sodium 136 mmol/L (136-145); Total Protein,Serum 7.2 g/dl (6.3-8.2)
[2025-01-26 22:24] LABS: Thyroid Stimulating Hormone 5.63 uIU/mL (0.465-4.68)
--- OUTSIDE RECORDS SUMMARY | 2025-01-27 16:24 | XMS_ITS | Clinical Summary ---
Author Organization [facility] Address [address] [place] [address] Care Team Providers Care Director Of Category Management Name Role Phone Unavailable Primary Care Provider Unavailabl e Allergies Active Allergy Reactions Criticality Noted Date Comments Erythromycin Anaphylaxis High 10/02/2022 Haloperidol Unknown - Patient st ates they do not know rxn details Low 11/23/2013 Medications albuterol 108 (90 Base) MCG/ACT inhaler INHALE TWO PUFFS FOUR TIMES DAILY NEEDED 05/28/2022 Active aspirin 81 MG EC tablet Take 81 mg by mouth 1 (one) time each day. 01/01/2022 Active diphenhydrAMINE (Sominex) 25 MG tablet Take 25 mg by mouth at night if needed for sleep. Active FLUoxetine (PROzac) 20 MG capsule Take 1 capsule (20 mg) by mouth 1 (one) time each day. 30 capsule 10/06/2022 Active ziprasidone (Geodon) 40 MG capsule Take 1 capsule (40 mg) by mouth 1 (one) time each day with dinner. Take with a 500 calorie meal 30 capsule 10/05/2022 Active hydrOXYzine pamoate (Vistaril) 25 MG capsule Take 1 capsule (25 mg) by mouth 3 (three) times a day if needed for itching for up to 10 days. Do not take with benadryl or other anti-histamin es 10 capsule 10/05/2022 Active nicotine (Nicoderm CQ) 7 MG/24HR patch Place 1 patch on the skin 1 (one) time each day over 24 hours for 14 doses. 14 patch 11/13/2022 Active Active Problems Problem Noted Date Diagnosed Date Bipolar disorder 10/03/2022 Other specified anxiety disorders 10/03/2022 Major depressive disorder 10/03/2022 Nicotine dependence 10/03/2022 Acute alcohol dependence syndrome 10/02/2022 Social History Tobacco Use Types Packs/Day Years Used Date Smoking Tobacco: Every Day Cigarettes 0.3 52.7 Started: 1970 Smokeless Tobacco: Never Tobacco Cessation:Ready to Q uit: Not Asked; Counseling Given: Not Answered Alcohol Use Standard Drinks/Week Comments Yes 0 (1 standard drink = 0.6 oz pur e alcohol) CAGE ASSESSMENT Answer Date Recorded Cage unable to access Not on file 10/03/2022 Maximum number of drinks you had on a given occasion in the last month? 5 or more drinks 10/03/2022 How many alcoholic Beverages do you typically drink in a week? 15 or more per week 10/03/2022 Have you ever felt you shoul d CUT down on your drinking? 1 10/03/2022 Have you been ANNOYED by peo ple criticizing your drinking? 0 10/03/2022 Have you felt GUILTY about your drinking? 0 10/03/2022 Have you had a drink first t yfn in the morning (EYE-COTTON STRIPPER) to steady your nerves or to get rid of a hangover? 1 10/03/2022 CAGE Questionnaire Score 2 023 Sex and Gender Information Value Date Recorded Sex Assigned at Not on file Legal Sex Male 6:38 PM EDT Gender Identity Not on file Sexual Orientation Not on file Last Filed Vital Signs Vital Sign Reading Time Taken Comments Blood Pressure 127/84 10/05/2022 11:28 AM EDT Pulse 71 10/05/2022 11:28 AM EDT Temperature 36.7 C (98 F) 10/05/2022 11:28 AM EDT Respiratory Rate 20 10/05/2022 3:30 AM EDT Oxygen Saturation 95% 10/05/2022 11:28 AM EDT Inhaled Oxygen Concentration - - Weight 97.1 kg (214 lb 1.1 oz) 10/04/2022 11:16 PM EDT Height 170.2 cm (5' 7 ) 10/03/2022 8:09 AM EDT Body Mass Index 33.53 10/03/2022 8:09 AM EDT Plan of Treatment Health Maintenance Due Date Last Done Comments [facility]-Depression Screening 1962 [facility]-Medicare Annual Wellness (AWV) 1962 [facility]-Infant/Child/Adol SDOH Screenings 1962 [facility]-Obesity Intervention 1968 [facility]- SDOH Screenings 1980 [facility]-Adult SDOH Screenings 1980 [facility]-DTaP,Tdap,and Td Vaccines (1 - Tdap) 1981 CT Colonography 12/15/2007 Colonoscopy 12/15/2007 FIT-DNA 12/15/2007 FIT 12/15/2007 FOBT 12/15/2007 Sigmoidoscopy 12/15/2007 [facility]-Colorectal Cancer Screening 12/15/2007 [facility]-Pneumococcal Vaccine: 50+ Years (2 of 2 - PCV) 2012 04/06/2011 [facility]-Zoster Vaccines (1 of 2) 2012 [id number] Vaccine (4 - season) 2025 05/07/2021, 10/02/2020, 09/04/2020 [facility]-Influenza Vaccine (#1) 01/17/202503/27, 02/23/2020, 03/23/2017, Additional history exists [facility]-RSV Vaccine: 60+ Years or (1 - 1-dose 75+ series) 2037 [facility]-HIV Screening Completed 10/04/2022 [facility]-Hepatitis C Screening Completed 10/04/2022 HPV Vaccines Aged Out No longer eligi ble based on patient's age to complete this topic [facility]-HIB Vaccines Aged Out No longer e ligible based on patient's age to complete this topic [facility]-Hepatitis A Vaccines Aged Out No longer eligible based on patient's age to complete this topic [facility]-IPV Vaccines Aged Out No longer e ligible based on patient's age to complete this topic [facility]-Rotavirus Vaccines Aged Out No lo nger eligible based on patient's age to complete this topic Procedures Procedure Name Priority Date/Time Associated Diagnosis Comments HEPATITIS C ANTIBODY - ED W/REFLEX TO HCV QUANT PCR Routine 10/04/2022 4:09 AM EDT HIV 1/2 ANTIBODY/ANTIGEN SCREEN WITH REFLEX TO HIV I/II DIFFERENTIATION Routine 10/04/2022 4:09 AM EDT from Last 3 Months or Most Recently Relevant to Health Maintenance Results * HIV 1 & 2 Antibody/Antigen Screen (10/04/2022 4:09 AM EDT) [facility] HIV 1 & 2 Antibody/Antigen Screen Non Reactive Non Reactive 10/04/2022 5:12 AM EDT [facility] Comment:Screening for HIV 1 & 2 antibodies, and P24 antigen is NONREACTIVE. No confirmatory testing is required. Blood Venous blood specimen / Unknown Venipuncture / Unknown 10/04/2022 4:09 AM EDT 10/04/2022 4:31 AM EDT [facility] BLOOD ORDERABLES Final Res ult Performing Organization Address [facility] Co de Phone Number HEALTHCARE [facility] [address] [place] [address] * Hepatitis C Antibody - ED (10/04/2022 4:09 AM EDT) [facility] Hepatitis C Antibody Negative Negative 10/04/2022 5:13 AM EDT [facility] Blood Venous blood specimen / Unknown Venipuncture / Unknown 10/04/2022 4:09 AM EDT 10/04/2022 4:31 AM EDT [facility] BLOOD ORDERABLES Final Res ult Performing Organization Address [facility] Co de Phone Number [facility] [address] [place] [address] from Last 3 Months or Most Recently Relevant to Health Maintenance [facility] MED[facility] Advance Directives * Full Code (Latest Code Status on File) Date Activated Date Inactivated Comments 10/02/2022 11:22 PM 10/05/2022 4:01 PM Question Answer Comments Patient has decision-making capacity? Yes
--- OUTSIDE RECORDS SUMMARY | 2025-01-27 16:24 | XMS_ITS | Clinical Summary ---
[facility] Address [address] [place] [address] Care Team Providers Care Scaffold Setter Name Role Phone Provider, No Known Primary Care Provider Unavail able Immunizations Immunization Administration Dates Next Due Flu Vaccine Quad PF >36MO 03/23/2017 Social History Tobacco Use Types Packs/Day Years Used Date Smoking Tobacco: Never Assessed Abuse Screen Answer Date Recorded Unsafe at Home or Work/School Not on file Feels Threatened by Someone? Not on file 03/2023 Does Anyone Keep You from Co ntacting Others or Doint Things Outside the Home? Not on file 02/26/2023 Physical Sign of Abuse Present Not on file 1 Housing Stability Answer Date Recorded Current Living Arrangements Not on file 02/16 Potentially Unsafe Housing Conditions Not on mehrdad e 02/26/2023 Family and Community Support Answer Phuc e Recorded Help with Day-to-Day Activities Not on file 02/26/2023 Lonely or Isolated Not on file 02/26/2023 Employment Answer Date Recorded Do you want help finding or keeping work or a alejandro b? Not on file 02/26/2023 Disabilities Answer Date Recorded Concentrating, Remembering, or Making Decisions Difficulty Not on file 02/26/2023 Doing Errands Independently Difficulty Not on fi le 02/26/2023 Education Answer Date Recorded Help with school or training? Not on file Preferred Language Not on file 02/26/2023 Sex and Gender Information Value Date Recorded Sex Assigned at Not on file Legal Sex Male 12:57 PM EST Gender Identity Not on file Sexual Orientation Not on file Plan of Treatment Health Maintenance Due Date Last Done Comments TDAP/TD VACCINES (1 - Tdap) 1981 COLOGUARD 12/15/2007 COLON CANCER SCREENING 5 YEAR SIGMOIDOSCOPY 12/15/2007 COLONOSCOPY 12/15/2007 COLORECTAL CANCER SCREENING 12/15/2007 CT COLONOGRAPHY 12/15/2007 FECAL OCCULT BLOOD TEST 12/15/2007 FIT Testing (1 year) 12/15/2007 Pneumococcal Vaccine 50+ (1 of 1 - PCV) 2012 ZOSTER VACCINE (1 of 2) 2012 ANNUAL PHYSICAL 03/23/2017 HEPATITIS C SCREENING 03/23/2017 COVID-19 Vaccine ( season) 2025 INFLUENZA VACCINE 02/16/2025 03/23/2017 Insurance MEDICARE A & B Care Teams Scaffold Setter Relationship Specialty Start Date End Date Provider, No Known [facility] [place] [address] PCP - General 03/23/17
== END 2025-01-26 23:59 | disposition home or self-care (01) ==
LOC: LAB.DROPOF 01-27 16:22
PROVIDERS: PCP Nurse Practitioner Family; Visit Provider Nurse Practitioner Family
DX: E11.9 Type 2 diabetes mellitus without complications (principal); R79.89 Other specified abnormal findings of blood chemistry; I10 Essential (primary) hypertension; Z12.5 Encounter for screening for malignant neoplasm of prostate; Z79.899 Other long term (current) drug therapy
CPT/HCPCS: 80053; 84443; 85025; G0103

== ENCOUNTER 2025-05-03 15:42 | Outpatient (CLI) | payer MEDICARE, MEDICAID, SELFPAY ==
[2025-05-03 21:49] LABS: Alanine Aminotransferase 125 U/L (12-78); Albumin Level 4.1 g/dl (3.5-5.0); Albumin/Globulin Ratio 1.1 (1.1-1.8); Alkaline Phosphatase 128 U/L (38-126); Anion Gap 12.4 mEq/L (5-15); Aspartate Amino Transferase 312 U/L (17-59); Bilirubin,Total 1.6 mg/dl (0.2-1.3); Blood Urea Nitrogen 12 mg/dl (9-20); Calcium 9.4 mg/dl (8.4-10.2); Carbon Dioxide 23 mmol/L (22.0-30.0); Chloride 101 mmol/L (98-107); Creatinine,Serum 0.90 mg/dl (0.66-1.25); Estimated Glomerular Filt Rate 86 ml/min (>60); GFR (African American) 103 ML/MIN (>60); Globulin 3.7 g/dL (1.3-3.2); Glucose 113 mg/dl (74-100); Potassium 4.4 mmoL/L (3.5-5.1); Sodium 132 mmol/L (136-145); Total Protein,Serum 7.8 g/dl (6.3-8.2)
[2025-05-03 21:56] LABS: Hemoglobin A1C 5.3 % (4.0-6.0)
[2025-05-03 22:09] LABS: Free T4 (Free Thyroxine) 1.24 ng/dl (0.78-2.19)
[2025-05-03 22:23] LABS: Thyroid Stimulating Hormone 4.66 uIU/mL (0.465-4.68)
--- OUTSIDE RECORDS SUMMARY | 2025-05-04 13:30 | XMS_ITS | Clinical Summary ---
Author Organization 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 Name Role Phone Unavailable Primary Care Provider [...] Date Smoking Tobacco: Every Day Cigarettes 0.3 53 Started: 1970 Smokeless Tobacco: Never Tobacco Cessation:Ready [...] drink first t yfn in the morning (EYE-LPN INSTRUCTOR) to steady your nerves or to get [...] 04/06/2011 [facility]-Zoster Vaccines (1 of 2) 2012 [id number] Vaccine (4 - season) 2025 05/07/2021, 10/02/2020, 09/04/2020 [facility]-Influenza Vaccine (#1) 01/17/202503/27, 02/23/2020, 03/23/2017, Additional history exists [facility]-RSV Vaccine: 60+ Years or (1 - 1-dose 75+ series) 2037 [facility]-HIV Screening Completed 10/04/2022 [facility]-Hepatitis C Screening Completed 10/04/2022 HPV Vaccines (No Doses Required) Completed [facility]-HIB Vaccines Aged Out No longer e [...] 2 Antibody/Antigen Screen (10/04/2022 4:09 AM EDT) HIV 1 & 2 Antibody/Antigen Screen Non Reactive Non Reactive 10/04/2022 5:12 AM EDT [facility] Comment:Screening for HIV 1 & 2 antibodies, and P24 antigen is NONREACTIVE. No confirmatory testing is required. Blood Venous blood specimen / Unknown Venipuncture / Unknown 10/04/2022 4:09 AM EDT 10/04/2022 4:31 AM EDT [facility] BLOOD ORDERABLES Final Res ult [facility] [address] [place] [address] * Hepatitis C Antibody - ED (10/04/2022 4:09 AM EDT) Hepatitis C Antibody Negative Negative 10/04/2022 5:13 AM EDT [facility] Blood Venous blood specimen / Unknown Venipuncture / Unknown 10/04/2022 4:09 AM EDT 10/04/2022 4:31 AM EDT [facility] BLOOD ORDERABLES Final Res ult [facility] [address] [place] [address] from Last 3 Months or Most Recently Relevant to Health Maintenance [facility] Advance Directives * Full Code (Latest Code Status on File) Date Activated Date Inactivated Comments 10/02/2022 11:22 PM 10/05/2022 4:01 PM Question Answer Comments Patient has decision-making capacity? Yes
== END 2025-05-03 23:59 | disposition home or self-care (01) ==
LOC: LAB.DROPOF 05-04 12:43
PROVIDERS: PCP Nurse Practitioner Family; Visit Provider Nurse Practitioner Acute Care
DX: F41.9 Anxiety disorder, unspecified (principal); F31.62 Bipolar disorder, current episode mixed, moderate; E11.9 Type 2 diabetes mellitus without complications
CPT/HCPCS: 80053; 80178; 83036; 84439; 84443